=== PATIENT | male | born 1950 | race American Indian/Alaskan Native ===

== ENCOUNTER 2018-12-24 00:50 | Emergency (ER) | payer MEDICARE ==
[2018-12-24] MEDS ORDERED: ATIVAN IV ONE (01:13)
--- NOTE | 2018-12-24 01:14 | Emergency Department Report ---
HPI - General Time Seen by Provider: 12/24/18 00:54 - HPI HPI: 68-year-old -[place] male presents to the emergency department via EMS from home with the complaints of muscle spasms and hyperglycemia. Patient has been having a two-week history of spasms in the right hand, worst in the pinky, to the point where he says that the finger becomes contracted and he has to pull it back into place and straightening. However, starting this evening, the patient is had severe spasms and shaking of the left upper extremity, worst at the shoulder. EMS found the patient had a critical high blood sugar level. Patient does have a history of [id number] diabetes and was diagnosed about one year ago, but he admits to medication noncompliance with the metformin for the past 8 months since his mother . He has not taken anything for his symptoms prior to presentation. His primary care physician is Dr. Diane Parker. ED Past Medical Hx - Past Medical History Additional medical history: Anemia: He has had two blood transfusions in 1997- and 2001 - Social History Smoking Status: Never Smoker Substance Use Type: None - Medications Home Medications: Home Medications Medication Instructions Recorded Confirmed Last Taken Type Chlorhexidine Mouthwash [Peridex] 15 ml MM BID #1 bottle 12/10/15 Unknown Rx HYDROcodone/APAP 5-325 [[place] 1 each PO Q6HR PRN #10 tablet 12/10/15 Unknown Rx 5/325] Sulfamethoxazole/Trimethoprim 1 each PO BID #10 tablet 12/10/15 Unknown Rx [Bactrim DS TAB] Cyclobenzaprine HCl [Flexeril 5 MG 5 mg PO TID PRN #12 tab 12/24/18 Unknown Rx TAB] metFORMIN [Glucophage] 500 mg PO BID #60 tablet 12/24/18 Unknown Rx ED Review of Systems ROS: Stated complaint: HYPERGLYCEMIA Other details as noted in HPI Comment: All other systems reviewed and negative Constitutional: denies: chills, fever Eyes: denies: eye pain, vision change ENT: denies: ear pain, throat pain Respiratory: denies: cough, shortness of breath Cardiovascular: denies: chest pain, palpitations Endocrine: increased thirst, increased urine Gastrointestinal: denies: abdominal pain, vomiting Genitourinary: frequency. denies: dysuria Musculoskeletal: arthralgia, myalgia. denies: joint swelling Skin: denies: rash, lesions Neurological: denies: numbness, paresthesias Physical Exam - Physical Exam Physical Exam: GENERAL: The patient is well-developed well-nourished. HENT: Normocephalic. Atraumatic. Patient has moist mucous membranes. EYES: Extraocular motions are intact. Pupils equal reactive to light bilaterally. NECK: Supple. Trachea is midline. CHEST/LUNGS: Clear to auscultation. There is no respiratory distress noted. HEART/CARDIOVASCULAR: Regular. There is no tachycardia. There is no murmur. ABDOMEN: Abdomen is soft, nontender. Patient has normal bowel sounds. There is no abdominal distention. SKIN: Skin is warm and dry. NEURO: The patient is awake, alert, and oriented. The patient is cooperative. The patient has no focal neurologic deficits. Normal speech. MUSCULOSKELETAL: There is no tenderness or deformity. The patient has involuntary muscle spasms and shaking of the left upper extremity. Radial pulse +2 over 4 and capillary refill less than 2 seconds to the affected left upper extremity. ED Medical Decision Making - Lab Data Result diagrams: 12/24/18 Unknown 12/24/18 Unknown - EKG Data -: EKG Interpreted by Ma EKG shows normal: sinus rhythm, axis (left axis deviation), intervals, QRS complexes (left anterior fascicular block), ST-T waves Rate: tachycardia (109 bpm) - EKG Data When compared to previous EKG there are: previous EKG unavailable Interpretation: other (sinus rhythm, mild tachycardia, left axis deviation, left anterior fascicular block) - Medical Decision Making This patient presents to the emergency department with complaint of some muscle spasms to the left upper arm and shoulder and was also found to have hyperglycemia. The patient admits to medication noncompliance with the metformin for the past 8 months since his mother . His serum blood sugar came back at about 700. No venous acidosis. There is a mild elevation in the anion gap but overall the patient does not appear to be in diabetic ketoacidosis. He Was Given a Liter of IV Fluid Resuscitation and Was Given 15 Units of Insulin. About one hour later his Accu-Chek showed the blood sugar came down to about 220. Once the patient received some IV fluid resuscitation and the hyperglycemia was better controlled, it appears that the muscle spasms has resolved or at least greatly decreased in frequency. His vital signs are s table throughout his ED course. The patient is awake, alert and in no acute distress. He appears safe for discharge home at this time. He has good follow- up with primary care and will see Dr. Parker on Tuesday. He will be restarted on his metformin for the hyperglycemia/diabetes. We discussed staying away from foods that are high in sugar, carbohydrates, starches and keeping a blood sugar log. The patient is also given a small amount of a muscle relaxer in case the muscle spasms restarted. He will return to the emergency Department with any worsening of his symptoms or any acute distress. - Differential Diagnosis DKA, HHNK, Electrolyte abnormalities, dehydration Critical Care Time: No Critical care attestation.: If time is entered above; I have spent that time in minutes in the direct care of this critically ill patient, excluding procedure time. ED Disposition Clinical Impression: Hyperglycemia, Noncompliance with medication regimen, Muscle spasm Disposition: - TO HOME OR SELFCARE Is pt being admited?: No Condition: Stable Instructions: Muscle Spasm (ED), Diabetic Hyperglycemia (ED) Additional Instructions: Please follow-up with your primary care physician on Tuesday. Return to the emergency Department with any worsening of your symptoms or any acute distress. I am restarting you on your metformin which you will take twice daily. Please try and stay away from foods that are high in sugar, carbohydrates and starches. Keep a blood sugar log. You have been prescribed a medication that is sedating and therefore should not be taken prior to driving, working, and responsible for children and in no way should be mixed with alcohol of any quantity. Prescriptions: Cyclobenzaprine HCl [Flexeril 5 MG TAB] 5 mg PO TID PRN #12 tab PRN Reason: Muscle Spasm metFORMIN [Glucophage] 500 mg PO BID #60 tablet Referrals: DIANE PARKER MD [Primary Care Provider] - 2-3 Days Forms: Work/School Release Form(ED) Time of Disposition: 03:59
[2018-12-24 01:28] LABS: Basophils % (Auto) 0.5 % (0.0-1.8); Eosinophils # (Auto) 0.1 K/mm3 (0.0-0.4); Eosinophils % (Auto) 1.5 % (0.0-4.3); Hematocrit 42.3 % (35.5-45.6); Lymphocytes % (Auto) 34.5 % (13.4-35.0); Mean Corpuscular HGB Conc 33 % (32-34); Mean Corpuscular Volume 90 fl (84-94); Monocytes # (Auto) 0.6 K/mm3 (0.0-0.8); Monocytes % (Auto) 10.9 % (0.0-7.3); Platelet Count 242 K/mm3 (140-440); Red Blood Count 4.71 M/mm3 (3.65-5.03); Red Cell Distribution Width 14.5 % (13.2-15.2)
[2018-12-24] MEDS ORDERED: NACL 0.9% 1000 ML 1,000 ML IV ONE ×2 (01:32→02:25)
[2018-12-24 01:51] LABS: Bilirubin,Urine NEG (Negative); Blood,Urine NEG (Negative); Color,Urine Colorless (Yellow); Mucus,Urine FEW /HPF; Protein,Urine <15 mg/dL mg/dL (Negative); RBC,Urine < 1.0 /HPF (0.0-6.0); Urobilinogen,Urine < 2.0 mg/dL (<2.0)
[2018-12-24 01:54] LABS: Alanine Aminotransferase 23 units/L (7-56); Albumin 3.9 g/dL (3.9-5); BUN/Creatinine Ratio 14; Blood Urea Nitrogen 14 mg/dL (9-20); Calcium 9.2 mg/dL (8.4-10.2); Hemolysis Index 15
[2018-12-24 02:15] LABS: WBC,Urine < 1.0 /HPF (0.0-6.0)
[2018-12-24] MEDS ORDERED: HumuLIN R IV ONE (02:25)
[2018-12-24 04:30] VITALS: BP 115/74
== END 2018-12-24 04:30 | disposition home or self-care (01) ==
LOC: ED 00:50
DX: E11.65 Type 2 diabetes mellitus with hyperglycemia (principal); R25.2 Cramp and spasm
CPT/HCPCS: 36415; 80053; 81001; 82805; 82962; 83735; 84443; 85025; 93005; 93010; 96374; 96375; 99284; J2060; J7030; J1815